=== PATIENT | male | born 1965 | race Caucasian/White ===

== ENCOUNTER 2017-08-30 10:37 | Day surgery (SDC) | payer OTHER, MEDICAID ==
[~2017-08-30] VITALS: Ht 188 cm; Wt 114.7 kg
[~2017-08-30 10:37] MED LIST: BACITRACIN OINT 500U/GM, 15 GM ONE; EPINEPHRINE 1 MG/ML, 1ML ONE; EPINEPHRINE TOPICAL SOLN 1 MG/ML, 30ML ONE; FLUORESCEIN OPHTHALMIC 1 MG STRIP ONE; LIDOCAINE 1%, 20ML ONE; OXYMETAZOLINE NASAL SPRAY 0.05%, 15ML ONE
[2017-08-30] MEDS ORDERED: MIDAZOLAM 1 MG/ML, 2ML ONE (10:52)
[2017-08-30] MEDS ORDERED: FENTANYL PF 250 MCG/5ML ONE (10:52)
[2017-08-30] MEDS ORDERED: LIDOCAINE 4%, 4 ML SYR/CANN TP ONE (10:54)
[2017-08-30] MEDS ORDERED: ROCURONIUM 10 MG/ML,10ML ONE (10:55)
[2017-08-30] MEDS ORDERED: NEOSTIGMINE 1 MG/ML, 10ML ONE (10:55)
[2017-08-30] MEDS ORDERED: DEXAMETHASONE 4 MG/ML, 1ML ONE (10:55)
[2017-08-30] MEDS ORDERED: SUCCINYLCHOLINE 20 MG/ML, 10ML ONE ×2 (10:55)
[2017-08-30] MEDS ORDERED: GLYCOPYRROLATE 0.2MG/1ML, 5ML ONE (10:55)
[2017-08-30] MEDS ORDERED: CEFAZOLIN 1,000 MG ONE (10:55)
[2017-08-30] MEDS ORDERED: PROPOFOL 10 MG/ML, 20ML ONE ×2 (10:55)
[2017-08-30] MEDS ORDERED: ONDANSETRON 2MG/ML, 2ML ONE ×2 (10:55→18:26)
[2017-08-30 11:13] VITALS: BP 212/126
[2017-08-30] MEDS ORDERED: LACTATED RINGERS 1,000 ML IV SCH (11:13)
[2017-08-30] MEDS ORDERED: CLON0.1T PO (11:15)
[2017-08-30] MEDS ORDERED: METO25TA35 PO (11:15)
[2017-08-30] MEDS ORDERED: LIDOCAINE-MPF 1%, 2ML ONE (11:17)
[2017-08-30] MEDS ORDERED: LIDOCAINE-MPF 1%, 2ML INFIL ONE (11:30)
[2017-08-30] MEDS ORDERED: FENTANYL PF 100 MCG/2ML IV PRN (13:00)
[2017-08-30] MEDS ORDERED: ACETAMINOPHEN 325 MG TABLET PO PRN (13:00)
[2017-08-30] MEDS ORDERED: LABETALOL 5MG/ML, 20ML IV PRN (13:00)
[2017-08-30] MEDS ORDERED: PROMETHAZINE 25 MG/ML, 1ML IV PRN (13:00)
[2017-08-30] MEDS ORDERED: HYDROcodone/APAP 7.5-325MG/15ML UDC PO PRN (13:00)
[2017-08-30] MEDS ORDERED: hydrALAzine 20 MG/ML, 1ML IV PRN (13:00)
[2017-08-30] MEDS ORDERED: ONDANSETRON 2MG/ML, 2ML IVPush PRN ×2 (13:00→17:00)
[2017-08-30] MEDS ORDERED: morphine SULFATE 10 MG/ML, 1ML IV PRN (13:00)
[2017-08-30] MEDS ORDERED: OXYcodone 5 MG/5 ML ORAL.SOL UDC PO PRN (13:00)
[2017-08-30 14:02] LABS: BASOPHILS # (AUTO) 0.03 x10^3/uL (0-0.1); BASOPHILS % (AUTO) 0 % (0-1); EOSINOPHILS # (AUTO) 0.15 x10^3/uL (0-0.4); EOSINOPHILS % (AUTO) 2 % (1-7); LYMPHOCYTES # (AUTO) 2.68 x10^3/uL (1-3.4); LYMPHOCYTES % (AUTO) 29 % (22-44); MD NO; MEAN CORPUSCULAR HEMOGLOBIN 30.7 pg (27.5-34.5); MEAN CORPUSCULAR VOLUME 90.1 fL (81-97); MEAN PLATELET VOLUME 8.1 fL (7.4-10.4); MONOCYTES # (AUTO) 0.61 x10^3/uL (0.2-0.8); MONOCYTES % (AUTO) 7 % (2-9); NEUTROPHILS # (AUTO) 5.77 x10^3/uL (1.8-6.8); NEUTROPHILS % (AUTO) 63 % (42-75); PLATELET COUNT 190 x10^3/uL (130-400)
[2017-08-30] MEDS ORDERED: OXYcodone 5 MG/5 ML ORAL.SOL UDC ONE (15:24)
[2017-08-30] MEDS ORDERED: ACETAMINOPHEN 650 MG/20.3 ML UDC ONE (15:24)
[2017-08-30] MEDS ORDERED: morphine SULFATE 10 MG/ML, 1ML IVPush PRN (17:00)
[2017-08-30] MEDS ORDERED: HYDROcodone/APAP 5/325 TABLET PO PRN (17:00)
[2017-08-30] MEDS ORDERED: DEXAMETHASONE 4 MG/ML, 5ML ONE (18:26)
[2017-08-30] MEDS ORDERED: DEXAMETHASONE 4 MG/ML, 1ML IVPush ONE (18:30)
== END 2017-08-30 19:21 | disposition home or self-care (01) ==
LOC: OUT 10:37
PROVIDERS: ATTEND Otolaryngology
DX: J32.0 Chronic maxillary sinusitis (principal); J32.2 Chronic ethmoidal sinusitis; J33.0 Polyp of nasal cavity; J34.89 Other specified disorders of nose and nasal sinuses; I10 Essential (primary) hypertension
CPT/HCPCS: 31259; 31267; 31276; 36415; 61782; 85025; 86850; 86900; 87070; 87075; 87077; 87205; 88304; 88305; 88331; 93005; J0171; J0330; J0690; J1100; J2250; J2270; J2405; J2704; J3010; J3490; J7120; 87186; 88311; J2710